=== PATIENT | female | born 1965 | race Caucasian/White ===

== ENCOUNTER 2022-07-17 11:32 | Emergency (ER) | payer BC ==
[2022-07-17] MEDS ORDERED: Sodium Chloride 0.9% 10 ML Syringe FLUSH PRN (12:05)
[2022-07-17] MEDS ORDERED: HYDROmorphone 0.5 MG/0.5 ML Syringe IVPUSH ONE ×3 (12:05→16:46)
[2022-07-17] MEDS ORDERED: Ondansetron 4 MG/2 ML SDV IVPUSH ONE (12:06)
[2022-07-17] MEDS ORDERED: Sodium Chloride 0.9% 1,000 ML IV SCH (12:15)
[2022-07-17] MEDS ORDERED: HYDROmorphone 0.5 MG/0.5 ML Syringe ONE (15:03)
[2022-07-17] MEDS ORDERED: Lactated Ringers 1,000 ML IV SCH (17:30)
[2022-07-17] MEDS: HYDROmorphone 0.5 MG/0.5 ML Syringe IVPUSH ONE ×2 (17:44→18:48)
== END 2022-07-17 19:30 ==
LOC: JD.ED 11:32
DX: K80.50 Calculus of bile duct without cholangitis or cholecystitis without obstruction (principal); I10 Essential (primary) hypertension; E78.00 Pure hypercholesterolemia, unspecified; Z88.1 Allergy status to other antibiotic agents; Z79.899 Other long term (current) drug therapy; Z79.84 Long term (current) use of oral hypoglycemic drugs; Z90.710 Acquired absence of both cervix and uterus
CPT/HCPCS: 36415; 76705; 82977; 93005; 96361; 96374; 96375; 96376; 99285; J1170; J2405; J3490; J7030; J7120

== ENCOUNTER 2024-10-28 07:28 | Day surgery (SDC) | payer BC ==
[~2024-10-28 07:28] MED LIST: Sodium Chloride 0.9% 10 ML Syringe FLUSH PRN; Sodium Chloride 0.9% 10 ML Syringe FLUSH SCH
[2024-10-28] MEDS: Lactated Ringers 1,000 ML IV SCH (07:50)
[2024-10-28] MEDS ORDERED: Midazolam 1 MG/ML 2 ML SDV ONE (08:19)
[2024-10-28] MEDS ORDERED: Propofol 200 MG/20 ML SDV ONE (08:19)
[2024-10-28] MEDS ORDERED: Lidocaine 1% 4 ML ONE (08:19)
== END 2024-10-28 09:55 | disposition home or self-care (01) ==
LOC: JD.SDS 07:28
PROVIDERS: ATTEND Surgery
DX: Z12.11 Encounter for screening for malignant neoplasm of colon (principal); Z88.8 Allergy status to other drugs, medicaments and biological substances; Z86.0101 Personal history of adenomatous and serrated colon polyps; Z79.899 Other long term (current) drug therapy
CPT/HCPCS: 45378; J2003; J2250; J2704; J7120